=== PATIENT | male | born 1980 | race Caucasian/White ===

== ENCOUNTER 2021-02-12 13:19 | Inpatient (IN) | payer BC ==
[~2021-02-12] VITALS: Ht 175.3 cm; Wt 95.0 kg
[2021-02-12] MEDS ORDERED: normal saline 1000ml 1,000 ML IV ONE (13:30)
[2021-02-12 13:59] LABS: BASOPHILS % (AUTO) 0.1 % (0-1); EOSINOPHILS # (AUTO) 0.2 X10'3 (0-0.9); EOSINOPHILS % (AUTO) 5.3 % (0-6); HEMATOCRIT 40.7 % (42.0-52.0); LYMPHOCYTES # (AUTO) 0.3 X10'3 (1.1-4.8); LYMPHOCYTES % (AUTO) 6.5 % (21-51); MEAN CORPUSCULAR HEMOGLOBIN 30.7 PG (27.0-31.0); MEAN CORPUSCULAR HGB CONC 34.4 g/dL (33.0-36.5); MEAN CORPUSCULAR VOLUME 89.1 FL (78-98); MONOCYTES # (AUTO) 0.1 X10'3 (0-0.9); MONOCYTES % (AUTO) 1.4 % (2-12); NEUTROPHILS # (AUTO) 3.9 X10'3 (1.8-7.7); NEUTROPHILS % (AUTO) 86.7 % (42-75); PLATELET COUNT 172 X10'3 (140-440); RED BLOOD COUNT 4.57 X10'6 (4.70-6.10); RED CELL DISTRIBUTION WIDTH 13.5 % (11.5-14.5); WHITE BLOOD COUNT 4.5 X10'3 (4.5-11.0)
[2021-02-12 14:20] LABS: ALANINE AMINOTRANSFERASE 40 U/L (12-78); ALBUMIN 3.7 G/DL (3.4-5.0); ALBUMIN/GLOBULIN RATIO 0.9 (1.1-1.5); ALKALINE PHOSPHATASE 77 IU/L (46-116); ANION GAP 13 (8-16); ASPARTATE AMINO TRANSFERASE 36 U/L (10-37); BILIRUBIN,TOTAL 0.3 MG/DL (0.1-1.0); BLOOD UREA NITROGEN 23 MG/DL (7-18); BUN/CREATININE RATIO 16.9 (5.4-32.0); CALCIUM 8.8 MG/DL (8.5-10.1); CHLORIDE 96 MMOL/L (99-107); CREATININE 1.36 MG/DL (0.60-1.10); GLUCOSE 97 MG/DL (70-104); MAGNESIUM 2.1 MG/DL (1.5-2.4); POTASSIUM 3.4 MMOL/L (3.5-5.1); SODIUM 132 MMOL/L (135-145); TOTAL CARBON DIOXIDE 23.2 MMOL/L (24-32); TOTAL PROTEIN 7.9 G/DL (6.4-8.2); eGFR 58 ML/MIN
[2021-02-12] MEDS ORDERED: acetaminophen 325mg tablet PO ONE (14:25)
[2021-02-12 14:35] LABS: PLATELET ESTIMATE NORMAL; TOTAL CELLS COUNTED 100; TOXIC VACUOLATION 2+
[2021-02-12] MEDS ORDERED: CefTRIAXone/D5W-Rocephin 1gm 50 ML IV ONE (14:50)
[2021-02-12] MEDS ORDERED: vancomycin/NS 1 GM ADD-VANTAGE 250 ML IV ONE (15:00)
[2021-02-12] MEDS ORDERED: normal saline 1000ML IV soln IV ONE (15:05)
[2021-02-12] MEDS ORDERED: CLIN300C54 PO (17:45)
[2021-02-12] MEDS ORDERED: SULF1TAB49 PO (17:45)
[2021-02-12 18:37] LABS: CLARITY,URINE CLEAR (Clear); COLOR,URINE YELLOW (Yellow); GLUCOSE, URINE NEGATIVE (Neg); KETONES,URINE 15 mg/dl (Neg); LEUKOCYTE ESTERASE ,URINE NEGATIVE (Neg); NITRITES, URINE NEGATIVE (Neg); OCCULT BLOOD,URINE NEGATIVE (Neg); PROTEIN,URINE NEGATIVE (Neg); UROBILINOGEN,URINE 0.2 E.U/dL (0.2-1.0)
[2021-02-12 18:45] LABS: UA COLLECTION TYPE VOIDED
[2021-02-12] MEDS ORDERED: iohexol 300mg/ml 100ml inj. ONE (18:56)
[2021-02-12] MEDS ORDERED: temazepam 15mg capsule PO ONE (21:15)
[2021-02-12] MEDS ORDERED: magnesium hydroxide 30ml (MOM) UD suspension PO PRN (21:40)
[2021-02-12] MEDS ORDERED: potassium CL 10mEq/100ml bag 100 ML IV PRN (21:40)
[2021-02-12] MEDS ORDERED: ondansetron/PF 4mg/2ml inj IV PRN (21:40)
[2021-02-12] MEDS ORDERED: magnesium 4gm in 100ml NS 100 ML IV PRN (21:40)
[2021-02-12] MEDS ORDERED: magnesium Cl slow-release 64mg tablet PO PRN (21:40)
[2021-02-12] MEDS ORDERED: potassium Cl 20 mEq SR tablet PO PRN (21:40)
[2021-02-12] MEDS ORDERED: mag hydrox/Alum hydrox/simeth 30ml oral suspension PO PRN (21:40)
[2021-02-12] MEDS ORDERED: magnesium 2GM in 50ml NS 50 ML IV PRN (21:40)
[2021-02-12] MEDS: normal saline 1000ml 1,000 ML IV SCH (22:19)
[2021-02-12] MEDS: acetaminophen 325mg tablet PO PRN (22:20)
[2021-02-13] MEDS: vancomycin/NS 1 GM ADD-VANTAGE 250 ML IV SCH ×2 (03:34→15:04)
[2021-02-13] MEDS: acetaminophen 325mg tablet PO PRN (03:42)
[2021-02-13 04:02] LABS: BASOPHILS % (AUTO) 0.2 % (0-1); EOSINOPHILS # (AUTO) 0.1 X10'3 (0-0.9); EOSINOPHILS % (AUTO) 3.5 % (0-6); HEMATOCRIT 38.8 % (42.0-52.0); HEMOGLOBIN 13.3 g/dl (14.0-17.9); LYMPHOCYTES # (AUTO) 0.7 X10'3 (1.1-4.8); LYMPHOCYTES % (AUTO) 21.2 % (21-51); MEAN CORPUSCULAR HEMOGLOBIN 30.5 PG (27.0-31.0); MEAN CORPUSCULAR HGB CONC 34.3 g/dL (33.0-36.5); MEAN PLATELET VOLUME 7.9 FL (7.4-10.4); MONOCYTES # (AUTO) 0.1 X10'3 (0-0.9); MONOCYTES % (AUTO) 2.9 % (2-12); NEUTROPHILS # (AUTO) 2.4 X10'3 (1.8-7.7); NEUTROPHILS % (AUTO) 72.2 % (42-75); PLATELET COUNT 135 X10'3 (140-440); RED BLOOD COUNT 4.36 X10'6 (4.70-6.10); RED CELL DISTRIBUTION WIDTH 13.6 % (11.5-14.5); WHITE BLOOD COUNT 3.4 X10'3 (4.5-11.0)
[2021-02-13] MEDS ORDERED: metroNIDAZOLE 500mg tablet PO ONE (04:05)
--- NOTE | 2021-02-13 04:05 | NUR ---
spoke with dr rodgers regarding pt water diarrhea, 2nd one in past few hours with recent abx for past week. collected sample for c-diff, ordered test and sent to lab. recieved telephone orders forr flagyl 500mg po tid with start dose now. per lab, tech is not able to run sample test until noon. md rodgers made aware.
[2021-02-13] MEDS: metroNIDAZOLE 500mg tablet PO SCH ×3 (04:09→19:53)
[2021-02-13 04:17] LABS: ALANINE AMINOTRANSFERASE 60 U/L (12-78); ALBUMIN 3.3 G/DL (3.4-5.0); ALBUMIN/GLOBULIN RATIO 0.8 (1.1-1.5); ALKALINE PHOSPHATASE 73 IU/L (46-116); ANION GAP 14 (8-16); ASPARTATE AMINO TRANSFERASE 68 U/L (10-37); BILIRUBIN,TOTAL 0.5 MG/DL (0.1-1.0); BLOOD UREA NITROGEN 12 MG/DL (7-18); BUN/CREATININE RATIO 10.2 (5.4-32.0); CALCIUM 7.8 MG/DL (8.5-10.1); CHLORIDE 97 MMOL/L (99-107); CREATININE 1.18 MG/DL (0.60-1.10); GLUCOSE 100 MG/DL (70-104); MAGNESIUM 1.9 MG/DL (1.5-2.4); POTASSIUM 3.1 MMOL/L (3.5-5.1); SODIUM 131 MMOL/L (135-145); TOTAL PROTEIN 7.2 G/DL (6.4-8.2); eGFR 68 ML/MIN
[2021-02-13] MEDS: potassium Cl 20 mEq SR tablet PO PRN ×3 (05:40→19:54)
--- NOTE | 2021-02-13 06:30 | NUR ---
first contact with pt, found high fowlers in bed. oral temp 98.3, pt states he does not feel well. informed pt of plan for today. pt on all monitors, no distress. bsc emptied of liquid stool, approx 450ml clear yellow urine emptied as well.
[2021-02-13] MEDS: docusate sod 100mg capsule PO SCH ×2 (06:32→19:53)
[2021-02-13] MEDS: heparin, porcine 5000 units/ml vial SQ SCH ×2 (08:00→19:55)
[2021-02-13] MEDS: K and/or MAG REPLACEMENT MC SCH ×2 (08:00→19:53)
[2021-02-13 08:08] LABS: C DIFF SPECIMEN=DIARRHEA? ACCEPTABLE; C DIFFICILE TOXINS A&B NEGATIVE (Neg)
--- NOTE | 2021-02-13 08:30 | NUR ---
provided pt with breakfast tray, sitting in bed tolerating well.
[2021-02-13] MEDS: normal saline 1000ml 1,000 ML IV SCH (09:51)
--- NOTE | 2021-02-13 12:00 | NUR ---
family at bedside
--- NOTE | 2021-02-13 12:10 | NUR ---
pt moved to hospital bed, steady on feet.
[2021-02-13] MEDS ORDERED: LORazepam 0.5 MG tablet PO PRN (12:25)
[2021-02-13] MEDS ORDERED: LORazepam 2 mg/ml vial IV PRN (12:25)
[2021-02-13] MEDS ORDERED: morphine 4 MG/ML inj SYRINge IV PRN (12:25)
--- NOTE | 2021-02-13 13:30 | NUR ---
hospitalist at bedside
[2021-02-13] MEDS ORDERED: HYDROcodone/acetaminophen 10/325mg tab PO PRN (13:55)
--- NOTE | 2021-02-13 17:02 | NUR ---
pt resting in bed, no distress.
--- NOTE | 2021-02-13 21:47 | NUR ---
PT RESTING COMFORTABLY IN BED, NO DISTRESS
--- NOTE | 2021-02-14 01:00 | NUR ---
PT PLACED ON HOSPITAL BED FROM ER ARSEN. PT TOLERATED MOVE WELL. PT STATES "IS FEELING BETTER TODAY"
[2021-02-14] MEDS ORDERED: VANCOMYCIN LEVEL IV ONE (02:30)
[2021-02-14 03:23] LABS: BASOPHILS % (AUTO) 0.2 % (0-1); EOSINOPHILS # (AUTO) 0.2 X10'3 (0-0.9); EOSINOPHILS % (AUTO) 5.2 % (0-6); HEMATOCRIT 38.1 % (42.0-52.0); HEMOGLOBIN 12.8 g/dl (14.0-17.9); LYMPHOCYTES # (AUTO) 1.6 X10'3 (1.1-4.8); LYMPHOCYTES % (AUTO) 42.2 % (21-51); MEAN CORPUSCULAR HGB CONC 33.5 g/dL (33.0-36.5); MEAN CORPUSCULAR VOLUME 89.7 FL (78-98); MEAN PLATELET VOLUME 7.9 FL (7.4-10.4); MONOCYTES # (AUTO) 0.2 X10'3 (0-0.9); NEUTROPHILS # (AUTO) 1.7 X10'3 (1.8-7.7); NEUTROPHILS % (AUTO) 46.4 % (42-75); PLATELET COUNT 143 X10'3 (140-440); RED BLOOD COUNT 4.25 X10'6 (4.70-6.10); RED CELL DISTRIBUTION WIDTH 13.9 % (11.5-14.5); WHITE BLOOD COUNT 3.7 X10'3 (4.5-11.0)
[2021-02-14] MEDS: vancomycin/NS 1 GM ADD-VANTAGE 250 ML IV SCH (03:23)
[2021-02-14 03:25] LABS: ALANINE AMINOTRANSFERASE 64 U/L (12-78); ALBUMIN 3.2 G/DL (3.4-5.0); ALBUMIN/GLOBULIN RATIO 0.9 (1.1-1.5); ALKALINE PHOSPHATASE 66 IU/L (46-116); ANION GAP 14 (8-16); ASPARTATE AMINO TRANSFERASE 56 U/L (10-37); BILIRUBIN,TOTAL 0.4 MG/DL (0.1-1.0); BLOOD UREA NITROGEN 8 MG/DL (7-18); BUN/CREATININE RATIO 9.8 (5.4-32.0); CALCIUM 8.1 MG/DL (8.5-10.1); CHLORIDE 102 MMOL/L (99-107); CREATININE 0.82 MG/DL (0.60-1.10); GLUCOSE 94 MG/DL (70-104); POTASSIUM 3.4 MMOL/L (3.5-5.1); SODIUM 137 MMOL/L (135-145); TOTAL CARBON DIOXIDE 20.7 MMOL/L (24-32); TOTAL PROTEIN 6.8 G/DL (6.4-8.2); eGFR > 90 ML/MIN
[2021-02-14 03:27] LABS: MAGNESIUM 2.2 MG/DL (1.5-2.4); VANCOMYCIN,TROUGH 4.6 UG/ML (6.0-14.0)
[2021-02-14] MEDS: potassium Cl 20 mEq SR tablet PO PRN (04:51)
[2021-02-14 07:23] VITALS: BP 101/52
[2021-02-14] MEDS: heparin, porcine 5000 units/ml vial SQ SCH (08:00)
[2021-02-14] MEDS: docusate sod 100mg capsule PO SCH (08:00)
--- NOTE | 2021-02-14 10:50 | NUR ---
dr. colvin at bedside.
[2021-02-14] MEDS ORDERED: vancomycin/NS 1 GM ADD-VANTAGE 250 ML IV SCH (11:00)
[2021-02-14] MEDS: metroNIDAZOLE 500mg tablet PO SCH (11:33)
[2021-02-14] MEDS ORDERED: LINE600T14 PO (11:39)
[2021-02-14] MEDS: normal saline 1000ml 1,000 ML IV SCH (11:56)
[2021-02-14] MEDS: K and/or MAG REPLACEMENT MC SCH (11:56)
[2021-02-15] MEDS ORDERED: VANCOMYCIN LEVEL IV ONE (02:30)
== END 2021-02-14 13:00 | disposition home or self-care (01) | DRG 871 ==
LOC: ER 13:20 → ED HOLD 21:39 → UNDOADMIN 21:48 → ED HOLD 21:48 → EDBEDREQ 02-14 03:41 → UNDODISIN 02-14 13:00
PROVIDERS: ADMIT Internal Medicine; ATTEND Family Medicine
PROC: BW291ZZ Computerized Tomography (CT Scan) of Head and Neck using Low Osmolar Contrast (ICD-10-PCS; principal; 2021-02-12)
DX: A41.9 Sepsis, unspecified organism (principal); N17.0 Acute kidney failure with tubular necrosis; L03.221 Cellulitis of neck; L02.11 Cutaneous abscess of neck; E87.1 Hypo-osmolality and hyponatremia; D72.825 Bandemia; Z20.822 Contact with and (suspected) exposure to COVID-19; B95.62 Methicillin resistant Staphylococcus aureus infection as the cause of diseases classified elsewhere; E87.6 Hypokalemia; N18.9 Chronic kidney disease, unspecified; T63.301A Toxic effect of unspecified spider venom, accidental (unintentional), initial encounter; F17.200 Nicotine dependence, unspecified, uncomplicated; M54.2 Cervicalgia; Y92.89 Other specified places as the place of occurrence of the external cause; Z88.5 Allergy status to narcotic agent; Z79.899 Other long term (current) drug therapy
CPT/HCPCS: 36415; 70470; 70492; 71045; 80053; 80202; 81003; 83605; 83735; 84145; 85007; 85025; 87040; 87324; 87449; 87502; 87503; 87635; 96365; 96375; 99285; C9803; G0378; J0696; J3370; J7030; Q9967